=== PATIENT | male | born 1945 | race African-American/Black ===

== ENCOUNTER 2018-01-11 03:10 | Emergency (ER) | payer OTHER ==
[2018-01-11 03:47] LABS: #Basophils 0.2 thou/uL (0.0-0.2); #Eosinphils 0.1 thou/uL (0.0-0.7); #Lymphocytes 4.1 thou/uL (1.20-3.40); #Monocytes 0.5 thou/uL (0.11-0.59); #Neutrophils 6.4 thou/uL (1.40-6.50); %Basophils 1.4 % (0.0-1.0); %Eosinophils 1.2 % (0.0-10.0); %Lymphocytes 36.1 % (21.0-51.0); %Monocytes 4.7 % (0.0-10.0); %Neutrophils 56.7 % (42.0-75.0); Hemoglobin 14.5 g/dL (14.0-18.0); Mean Corpuscular HGB CONC 32.3 g/dL (32.0-36.0); Mean Corpuscular Hemoglobin 27.4 pg (27.0-31.0); Mean Corpuscular Volume 84.8 fl (80.0-94.0); Mean Platelet Volume 9.8 fL (7.4-10.4); Platelet Count 237 thou/uL (130-400); RBC Distribution Width 14.3 % (11.5-14.5); White Blood Cell (WBC) Count 11.2 thou/uL (4.8-10.8)
[2018-01-11] MEDS ORDERED: Furosemide 40 MG/4 ML VIAL ONE ×2 (03:51→10:16)
[2018-01-11 03:59] LABS: PTT 25.3 SEC (22.9-36.1)
[2018-01-11 04:00] LABS: D-Dimer Test 0.72 *mcg/mL (0.27-0.43); INR-International Normal Ratio 0.9; Prothrombin Time 11.9 SEC (12.0-14.7)
[2018-01-11 04:05] LABS: ALT (SGPT) 36 U/L (8-55); AST (SGOT) 27 U/L (5-34); Albumin 3.8 g/dL (3.4-4.8); Alkaline Phosphatase 109 U/L (40-150); Anion Gap 18 mmol/L (10-20); BUN (Urea Nitrogen) 12 mg/dL (8.4-25.7); Bilirubin, Total 0.2 mg/dL (0.2-1.2); Calc. Creatinine Clearance 0 mL/min (70-130); Calcium 9.4 mg/dL (7.8-10.44); Carbon Dioxide 21 mmol/L (23-31); Chloride 108 mmol/L (98-107); Estimated GFR-MDRD Greater than 90; Globulin 3.6 g/dL (2.4-3.5); Glucose 187 mg/dL (83-110); Potassium 3.9 mmol/L (3.5-5.1); Protein, Total 7.4 g/dL (5.8-8.1); Sodium 143 mmol/L (136-145)
[2018-01-11 04:06] LABS: CKMB 1.7 ng/mL (0-6.6); Troponin I 0.018 ng/mL (< 0.028)
--- NOTE | 2018-01-11 07:54 | RAD ---
PORTABLE CHEST ONE VIEW: Date: 01-11-18 Time: 4:11 a.m. History: Dyspnea. CHF. COPD. FINDINGS/IMPRESSION: No previous exams for comparison. The heart is enlarged. There is mild pulmonary vascular congestion. No lobar consolidation, pneumothoraces or large effusions are seen. POS: [facility]
--- NOTE | 2018-01-11 08:17 | CT ---
PRELIMINARY REPORT/[facility]/EMERGENCY AFTER HOURS PROCEDURE: EXAM: CT Angiography Chest With Intravenous Contrast CLINICAL HISTORY: 72 years old, male; Signs and symptoms and abnormal findings; Abnormal diagnostic tests; Elevated d-d jennifer; Shortness of breath; Patient HX: 72 year old male small fluid history of chf, copd, active smok er, presents with shortness of breath that awoke him from sleep. He states he feels like he is full o f air and water. Cough with clear sputum. O2sat on arrival was 86% on room air, patient is not on oxy gen therapy at home. ; Additional info: Egr >90 TECHNIQUE: Axial computed tomographic angiography images of the chest with intravenous contrast using pulmonary embolism protocol. All CT scans at this facility use one or more dose reduction techniques, viz.: aut omated exposure control; ma/kV adjustment per patient size (including targeted exams where dose is ma tched to indication; i.e. head); or iterative reconstruction technique. Coronal reformatted images were created and reviewed. CONTRAST: 96 mL of ISOVUE 370 administered intravenously. COMPARISON: No relevant prior studies available. FINDINGS: Pulmonary arteries: Motion artifact. No pulmonary embolus identified in the main portal lobar branches or segmental branches which can be effectively evaluated. Aorta: No aneurysm or dissection. Lungs: Calcified left lower lobe granuloma. Minimal paraseptal and centrilobular emphysematous change s. Mild basilar predominant bronchial wall thickening. Mild intralobular septal thickening. No mass o r consolidation. Pleural space: No significant effusion. No pneumothorax. Heart: Aortic valvular calcifications. Few coronary calcifications. Prominent left ventricle. Mildly prominent pulmonary veins. Bones/joints: No acute fracture. No dislocation. Soft tissues: Unremarkable. Lymph nodes: Unremarkable. No enlarged lymph nodes. Upper abdomen: Couple of small low-attenuation liver lesions too small to characterize. Indeterminat e 1.4 cm right adrenal nodule. IMPRESSION: 1. Motion artifact. No central pulmonary embolus. 2. Mild interlobular septal and peribronchial thickening may represent early edema or inflammation. Thank you for allowing us to participate in the care of your patient. Dictated and Authenticated by: Cody Harmon MD 01/11/2018 5:52 AM Central Time ([place] & [place]) FINAL REPORT CT PULMONARY ANGIOGRAM WITH IV CONTRAST AND 3D POSTPROCESSING: Date: 01/11/18 FINDINGS/IMPRESSION: I agree with the preliminary report given by Dr. Cody Harmon of [facility]. POS: [facility]
[2018-01-11] MEDS ORDERED: Iopamidol 370 76% 100 ML VIAL ONE (09:00)
[2018-01-11] MEDS ORDERED: hydrALAZINE 20 MG/ML VIAL ONE (09:07)
[2018-01-11] MEDS ORDERED: Enalaprilat Dihydrate 1.25 MG/ML VIAL ONE (10:15)
[2018-01-11] MEDS ORDERED: Sodium Chloride 0.9% 100 ML ONE (11:01)
[2018-01-11] MEDS ORDERED: Diltiazem 125 MG/25 ML ONE (11:01)
== END 2018-01-11 11:30 ==
LOC: NAV ERS 03:10
DX: I11.0 Hypertensive heart disease with heart failure (principal); I50.9 Heart failure, unspecified; R09.02 Hypoxemia; J44.9 Chronic obstructive pulmonary disease, unspecified; F43.10 Post-traumatic stress disorder, unspecified; F32.9 Major depressive disorder, single episode, unspecified; F17.210 Nicotine dependence, cigarettes, uncomplicated; Z79.82 Long term (current) use of aspirin; Z85.038 Personal history of other malignant neoplasm of large intestine; Z79.899 Other long term (current) drug therapy
CPT/HCPCS: 36415; 71045; 71275; 80053; 82553; 83605; 83880; 84484; 85025; 85379; 85610; 85730; 93005; 96365; 96375; 96376; 99406; J0360; J1940